=== PATIENT | female | born 1935 | race Caucasian/White ===

== ENCOUNTER → 2016-09-21 | Outpatient (CLI) | payer OTHER ==
[~2016-09-21] MED LIST: AMLO-110 PO; B-COCAP2 PO; CALCTAB5 PO; LORA-741 PO; MAGN400T6 PO; SIMV40TA2 PO
--- NOTE | 2016-09-21 14:43 | MAMMOGRAPHY REPORT ---
UNILATERAL RIGHT DIGITAL DIAGNOSTIC MAMMOGRAM TOMOSYNTHESIS WITH CAD: 09/21/2016 CLINICAL HISTORY: Six-month follow-up of right breast calcifications. TECHNIQUE: Breast tomosynthesis in addition to standard 2D mammography was performed. Current study was also evaluated with a Computer Aided Detection (CAD) system. Right CC and MLO 2D and tomosynthes is images and spot magnification right cc and ML views were obtained. COMPARISON: Comparison is made to exams dated: 03/23/2016 mammogram, 05/14/2015 mammogram, 08/03/2014 m ammogram, 01/22/2014 mammogram, 07/16/2013 specimen, and 07/16/2013 localization - [facility]. BREAST COMPOSITION: There are scattered areas of fibroglandular density in the right breast. FINDINGS: Spot magnification views of the right breast again demonstrate a small 2 mm cluster of portillo cifications at the lumpectomy bed in the right upper outer quadrant. The calcifications are stable i n number and appear more coarsened and therefore more benign-appearing compared to the 03/23/2016 exa m. 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 The remainder of the right breast is stable compared to prior exams, without suspicious masses, calci fications, or areas of architectural distortion noted. Other scattered benign-appearing calcificatio ns are stable. There are stable post surgical changes in the right upper outer quadrant from prior l umpectomy. IMPRESSION: ACR BI-RADS CATEGORY 2: BENIGN The small cluster of calcifications at the lumpectomy bed in the right breast have coarsened since March 2016 exam and are therefore compatible with benign dystrophic calcifications. There is no mammographic evidence of malignancy in the right breast. [facility], due March 2017. The patient and her daughter have been verbally notified of the results. Approximately 10% of breast cancers are not detected with mammography. A negative mammographic report should not delay biopsy if a clinically suggestive mass is present. Rebekah Merino M.D. /:09/21/2016 11:59:21 [employer] Operator: Mesha MURCIA(Jasmyne)(M), [facility] letter sent: Normal 1/2 BI-RADS Code: ACR BI-RADS Category 2: Benign
== END | disposition home or self-care (01) ==
LOC: C.MAMM 10:34
PROVIDERS: ATTEND Internal Medicine Hematology
DX: R92.1 Mammographic calcification found on diagnostic imaging of breast (principal)